=== PATIENT | male | born 1940 | race Caucasian/White ===

== ENCOUNTER → 2019-02-19 | Outpatient (CLI) | payer MEDICARE ==
[~2019-02-19] MED LIST: ALBU90OI; ASCO500 PO; ASPI81CH PO; ASPI81EC PO; CEPH250A PO; CLAR500CR; FINA5 PO; FLUC150A PO; FLUT110OIA IH; FLUT44OIA IH; HYDACE5 PO; HYDCHLSU; LEVFLO500 PO; LOVA20; LOVA20 PO; MONT10T; NYST100SU MT; ONDA4ODT MM; OXYACE5T PO; PRED20 PO
== END ==
LOC: LAB 12:30 → LAB SHORT 12:30
DX: R30.0 Dysuria (principal)
CPT/HCPCS: 87086

== ENCOUNTER 2022-04-16 08:18 | Day surgery (SDC) | payer MEDICARE ==
[~2022-04-16] VITALS: Ht 180.3 cm; Wt 95.0 kg
[~2022-04-16 08:18] MED LIST changes: +ALBU90OI INH; +ATOR10 PO; +SYMBICORT 160-4.6 GM INH; +TADA10TA PO; +TIOT18 INH
--- NOTE | 2022-04-16 09:02 | NUR ---
Ambulatory in Day Surgery History, Chart, Medications and Allergies reviewed before start of procedure. Pre-Op teaching done. Pt verbalizes understanding. Patient States Post-Procedure ride home has been arranged.
--- NOTE | 2022-04-16 09:17 | NUR ---
04/16/22 0917 Isaiah Plata HISTORY, CHART, MEDICATIONS AND ALLERGIES REVIEWED BEFORE START OF PROCEDURE. PATIENT CONFIRMS NPO STATUS AND AGREES WITH SCHEDULED PROCEDURE. 3-LEAD EKG REVIEWED WITH PHYSICIAN PRIOR TO START OF PROCEDURE. MONITOR INTACT WITH CONTINUOUS PULSE OXIMETRY,CAPNOGRAPHY, 3-LEAD EKG, INTERMITTENT BP. SUPPLEMENTAL O2 TO BE TITRATED THROUGHOUT PROCEDURE TO MAINTAIN O2 SATURATION ABOVE 90%. PATIENT DETERMINED TO BE ASA APPROPRIATE FOR PROPOFOL SEDATION PRIOR TO START OF PROCEDURE BY DR. MARIE.
--- NOTE | 2022-04-16 10:11 | NUR ---
Discharge instructions reviewed with patient. Patient verbalizes understanding. Copy given to patient to take home. Discharged via wheelchair to private car for ride home.
== END 2022-04-16 10:10 | disposition home or self-care (01) ==
LOC: ORSCMMR 08:18 → ORD 09:00 → ORSCMMR 09:00
PROVIDERS: Internal Medicine Gastroenterology
PROC: 0DBL8ZX Excision of Transverse Colon, Via Natural or Artificial Opening Endoscopic, Diagnostic (ICD-10-PCS; principal; 2022-04-16 09:00)
DX: Z12.11 Encounter for screening for malignant neoplasm of colon (principal); D12.3 Benign neoplasm of transverse colon; J44.9 Chronic obstructive pulmonary disease, unspecified; I27.20 Pulmonary hypertension, unspecified; E78.00 Pure hypercholesterolemia, unspecified; Z79.51 Long term (current) use of inhaled steroids; Z79.899 Other long term (current) drug therapy
CPT/HCPCS: 88305; J2704; J7120